=== PATIENT | male | born 1935 | race Hispanic/Latino ===

== ENCOUNTER → 2019-01-25 | Outpatient (CLI) | payer MEDICARE | END | disposition home or self-care (01) | LOC: RAH 09:17 | PROVIDERS: ATTEND Internal Medicine | DX: I25.10 Atherosclerotic heart disease of native coronary artery without angina pectoris (principal) | CPT/HCPCS: 71250 ==

== ENCOUNTER 2020-01-17 14:20 | Inpatient (IN) | payer MEDICARE ==
[~2020-01-17] VITALS: Ht 180.3 cm; Wt 71.6 kg
[2020-01-17] MEDS ORDERED: ONDANSETRON HCL 4 MG/2 ML VIAL ONE (15:01)
[2020-01-17] MEDS ORDERED: MORPHINE SULFATE 4 MG/1ML SYG ONE ×2 (15:02→16:52)
[2020-01-17 15:14] LABS: INR 1.02 (0.85-1.15); PARTIAL THROMBOPLASTIN TIME 21.9 SEC (26.3-35.5)
[2020-01-17 15:15] LABS: BASOPHILS % (AUTO) 0.7 % (0.0-5.0); EOSINOPHILS % (AUTO) 3.8 % (0.0-8.0); HEMATOCRIT 30.1 % (42-54); MEAN CORPUSCULAR HEMOGLOBIN 30.5 pg (27.0-33.0); MEAN CORPUSCULAR HGB CONC 32.9 g/dL (32.0-36.0); MEAN CORPUSCULAR VOLUME 92.6 fL (79-99); MONOCYTES % (AUTO) 9.2 % (3.0-13.0); PLATELET COUNT (AUTO) 143 K/uL (130-400); RED BLOOD CELL COUNT(AUTO) 3.25 MIL/uL (4.50-6.20); RED CELL DISTRIBUTION WIDTH 12.9 % (11.0-15.5); WHITE BLOOD COUNT (AUTO) 7.1 K/uL (4.8-10.8)
[2020-01-17 15:16] LABS: CREATININE 2.7 mg/dL (0.5-1.5)
[2020-01-17] MEDS ORDERED: CEFAZOLIN SODIUM 1 GM VIAL ONE (16:04)
[2020-01-17] MEDS: SODIUM CHLORIDE 0.9% 1000ML 1,000 ML IV SCH (16:44)
[2020-01-17] MEDS: CEFAZOLIN SODIUM 1 GM VIAL IVP SCH (16:45)
[2020-01-17] MEDS ORDERED: LACTULOSE 20 GM/30 ML UDCUP PO PRN (16:45)
[2020-01-17] MEDS ORDERED: ACETAMINOPHEN 325 MG TAB PO PRN ×2 (16:45)
[2020-01-17] MEDS ORDERED: HYDRALAZINE HCL 20 MG/ML VIAL IV PRN (16:45)
[2020-01-17] MEDS ORDERED: ONDANSETRON HCL 4 MG/2 ML VIAL IV PRN (16:45)
[2020-01-17 19:13] LABS: HEMOGLOBIN A1C 6.1 % (4.0-6.0)
[2020-01-17] MEDS: HEPARIN SODIUM 5000UNIT/ML 1ML VIAL SQ SCH (21:00)
[2020-01-17] MEDS: METOPROLOL TARTRATE 25 MG TAB PO SCH (21:00)
[2020-01-17] MEDS ORDERED: HEPARIN SODIUM 5000UNIT/ML 1ML VIAL ONE (22:39)
[2020-01-17] MEDS ORDERED: METOPROLOL TARTRATE 25 MG TAB ONE (22:39)
[2020-01-17] MEDS ORDERED: FAMOTIDINE/PF 20 MG/2 ML VIAL IV ONE (22:39)
[2020-01-17 23:16] VITALS: BP 142/68
[2020-01-18] MEDS ORDERED: PRAV80TA21 PO (00:13)
[2020-01-18] MEDS ORDERED: LISI2.5T2 PO (00:13)
[2020-01-18] MEDS ORDERED: METO-408 PO (00:13)
[2020-01-18] MEDS ORDERED: AEC81 PO (00:13)
[2020-01-18 00:16] VITALS: BP 122/58
[2020-01-18] MEDS ORDERED: OMEP20CA12 PO (00:16)
[2020-01-18] MEDS ORDERED: LORA10TA7 PO (00:16)
[2020-01-18] MEDS ORDERED: SODI650T PO (00:16)
[2020-01-18] MEDS: CEFAZOLIN SODIUM 1 GM VIAL IVP SCH ×3 (01:35→17:11)
[2020-01-18 05:17] VITALS: BP 141/60
[2020-01-18 08:00] VITALS: BP 138/63
[2020-01-18] MEDS: METOPROLOL TARTRATE 25 MG TAB PO SCH ×2 (09:00→21:14)
[2020-01-18] MEDS: HEPARIN SODIUM 5000UNIT/ML 1ML VIAL SQ SCH ×2 (09:00→21:19)
[2020-01-18] MEDS: FAMOTIDINE/PF 20 MG/2 ML VIAL IV SCH (09:53)
[2020-01-18] MEDS: MORPHINE SULFATE 2 MG/ML 1ML SYG IM PRN (11:17)
--- NOTE | 2020-01-18 11:23 | NUR ---
DC PLAN VISITED WITH PATIENT. PATIENT LIVES ALONE. INDEPENDENT ABLE TO PERFORM ADL'S. PATIENT HAS NO SERVICES OR DME'S. FEELS SAFE TO RETURN HOME. SAID HE WILL LIKELY STAY WITH DAUGHTER IN [place] IF HE NEEDS HELP. Addendum: 01/18/20 at 1125 by JOSE ALBERTO CHILEL RN CM Amended: Links added.
--- NOTE | 2020-01-18 11:34 | NUR ---
RD NOTIFICATION Pt admitted with L-Tibial Fracture. 84 y/o male. NPO pending procedure at time of screen. Appropriate BMI range. Altered renal function. Recommend advance diet as tolerated to Renal non dialysis, Heart Healthy diet order Recommend 60mL ProMod QD RD to continue to monitor. Please notify as additional nutrition concerns arise. Thank you. Addendum: 01/18/20 at [address] RD Amended: Links added.
[2020-01-18 12:00] VITALS: BP 138/64
[2020-01-18] MEDS: SODIUM CHLORIDE 0.9% 1000ML 1,000 ML IV SCH ×3 (12:44→21:20)
[2020-01-18 15:48] LABS: CREATININE 1.7 mg/dL (0.5-1.5); POTASSIUM 4.6 mmol/L (3.5-5.1)
[2020-01-18 16:00] VITALS: BP 145/71
[2020-01-18 20:08] VITALS: BP 149/65
[2020-01-19] VITALS (21 sets, daily range): BP systolic 128–176; BP diastolic 51–85
[2020-01-19] MEDS: CEFAZOLIN SODIUM 1 GM VIAL IVP SCH ×3 (00:18→14:23)
[2020-01-19 05:26] LABS: BASOPHILS % (AUTO) 0.7 % (0.0-5.0); EOSINOPHILS % (AUTO) 4.5 % (0.0-8.0); HEMATOCRIT 26.3 % (42-54); LYMPHOCYTES % (AUTO) 17.3 % (21.0-51.0); MEAN CORPUSCULAR HGB CONC 32.7 g/dL (32.0-36.0); MEAN CORPUSCULAR VOLUME 91.6 fL (79-99); MONOCYTES % (AUTO) 15.1 % (3.0-13.0); NEUTROPHILS % (AUTO) 62.1 % (40.0-77.0); PLATELET COUNT (AUTO) 118 K/uL (130-400); RED BLOOD CELL COUNT(AUTO) 2.87 MIL/uL (4.50-6.20); RED CELL DISTRIBUTION WIDTH 12.7 % (11.0-15.5); WHITE BLOOD COUNT (AUTO) 7.4 K/uL (4.8-10.8)
[2020-01-19 05:40] LABS: ALBUMIN 2.9 g/dL (3.5-5.0); BILIRUBIN,TOTAL 0.5 mg/dL (0.2-1.0); CREATININE 1.6 mg/dL (0.5-1.5); POTASSIUM 4.5 mmol/L (3.5-5.1); TOTAL PROTEIN, SERUM 6.2 g/dL (6.0-8.3)
[2020-01-19] MEDS ORDERED: FENTANYL CITRATE PF 50 MCG/1 ML 2ML VIAL ONE (07:00)
[2020-01-19] MEDS ORDERED: NEOSTIGMINE 5MG/5ML SYR IV ONE (07:00)
[2020-01-19] MEDS ORDERED: ONDANSETRON HCL 4 MG/2 ML VIAL ONE (07:00)
[2020-01-19] MEDS ORDERED: LIDOCAINE PF 2% 5ML ABBOJECT ONE ×2 (07:00→07:01)
[2020-01-19] MEDS ORDERED: GLYCOPYRROLATE 1 MG/5 ML SYRINGE ONE (07:00)
[2020-01-19] MEDS ORDERED: MIDAZOLAM HCL 1 MG/ML 2ML VIAL ONE (07:00)
[2020-01-19] MEDS ORDERED: DEXAMETHASONE SOD PHOSPHATE 10MG/ML 1ML VIAL ONE (07:00)
[2020-01-19] MEDS ORDERED: PROPOFOL 10 MG/ML 20ML VIAL IV ONE (07:00)
[2020-01-19] MEDS ORDERED: ROCURONIUM 10MG/1ML SYR 10 MG/ML ML ONE (07:00)
[2020-01-19] MEDS: FAMOTIDINE/PF 20 MG/2 ML VIAL IV SCH (07:35)
[2020-01-19] MEDS: SODIUM CHLORIDE 0.9% 1000ML 1,000 ML IV SCH ×3 (07:35→20:40)
[2020-01-19] MEDS: HEPARIN SODIUM 5000UNIT/ML 1ML VIAL SQ SCH ×2 (07:35→20:41)
[2020-01-19] MEDS: METOPROLOL TARTRATE 25 MG TAB PO SCH ×2 (07:36→20:40)
[2020-01-19] MEDS ORDERED: CEFAZOLIN SODIUM 1 GM VIAL ONE (07:42)
[2020-01-19] MEDS ORDERED: MEPERIDINE-PF 25 MG/ML SYG ONE ×2 (08:05→08:34)
[2020-01-19] MEDS: TAMSULOSIN HCL 0.4 MG CAP.ER.24H PO SCH (14:23)
[2020-01-19] MEDS: MORPHINE SULFATE 2 MG/ML 1ML SYG IM PRN (20:47)
[2020-01-20] MEDS: CEFAZOLIN SODIUM 1 GM VIAL IVP SCH ×4 (00:13→23:27)
[2020-01-20 03:38] VITALS: BP 142/62
[2020-01-20 04:48] LABS: BASOPHILS % (AUTO) 0.2 % (0.0-5.0); EOSINOPHILS % (AUTO) 0.3 % (0.0-8.0); HEMATOCRIT 21.9 % (42-54); LYMPHOCYTES % (AUTO) 10.6 % (21.0-51.0); MEAN CORPUSCULAR HEMOGLOBIN 30.7 pg (27.0-33.0); MEAN CORPUSCULAR HGB CONC 33.3 g/dL (32.0-36.0); MONOCYTES % (AUTO) 15.5 % (3.0-13.0); NEUTROPHILS % (AUTO) 73.2 % (40.0-77.0); PLATELET COUNT (AUTO) 109 K/uL (130-400); RED BLOOD CELL COUNT(AUTO) 2.38 MIL/uL (4.50-6.20); RED CELL DISTRIBUTION WIDTH 12.6 % (11.0-15.5); WHITE BLOOD COUNT (AUTO) 9.5 K/uL (4.8-10.8)
[2020-01-20 05:11] LABS: ALBUMIN 2.6 g/dL (3.5-5.0); BILIRUBIN,TOTAL 0.4 mg/dL (0.2-1.0); CREATININE 1.5 mg/dL (0.5-1.5); POTASSIUM 4.5 mmol/L (3.5-5.1)
[2020-01-20] MEDS: MORPHINE SULFATE 2 MG/ML 1ML SYG IM PRN ×2 (06:13→21:11)
[2020-01-20] MEDS: SODIUM CHLORIDE 0.9% 1000ML 1,000 ML IV SCH ×2 (06:14→23:58)
--- NOTE | 2020-01-20 08:00 | NUR ---
NOTE AAOX3. DENIES PAIN AT THIS TIME. S/P LEFT TIBIAL ORIF. DRESSING TO SITE D/I. HE HAS NOT BEEN SEEN BY P.T. WILL ASK MD FOR ORDERS. LLE DISTAL PULSES PRESENT WARM TOES BILATERALLY GOOD CAPILLARY REFILL.
[2020-01-20 08:02] VITALS: BP 139/68
[2020-01-20] MEDS: FAMOTIDINE/PF 20 MG/2 ML VIAL IV SCH (09:54)
[2020-01-20] MEDS: TAMSULOSIN HCL 0.4 MG CAP.ER.24H PO SCH (09:54)
[2020-01-20] MEDS: METOPROLOL TARTRATE 25 MG TAB PO SCH ×2 (09:54→21:06)
[2020-01-20] MEDS: HEPARIN SODIUM 5000UNIT/ML 1ML VIAL SQ SCH ×2 (10:14→21:09)
[2020-01-20 12:25] VITALS: BP 129/60
[2020-01-20 16:16] VITALS: BP 134/65
--- NOTE | 2020-01-20 17:00 | NUR ---
NOTE DR HESS CAME IN EARLIER. PATIENT WAS SEN BY P.T. AND HE AMBULATED SMALL DISTANCE. DR SILVA ASKED PATIENT IF HE HAD HELP AT HOME OR HE NEEDED TO GO TO REHAB OR [facility] FOR REHAB AND HE SAID HE WILL MAKE DECISION TOMORROW. DR HESS WILL BE HERE TOMORROW TO SEE HIM.
[2020-01-20 19:41] VITALS: BP 131/58
[2020-01-20 23:53] VITALS: BP 128/58
[2020-01-21 03:52] VITALS: BP 145/67
[2020-01-21 04:27] LABS: BASOPHILS % (AUTO) 0.4 % (0.0-5.0); EOSINOPHILS % (AUTO) 2.3 % (0.0-8.0); LYMPHOCYTES % (AUTO) 13.7 % (21.0-51.0); MEAN CORPUSCULAR HEMOGLOBIN 30.9 pg (27.0-33.0); MEAN CORPUSCULAR VOLUME 90.8 fL (79-99); MONOCYTES % (AUTO) 13.2 % (3.0-13.0); PLATELET COUNT (AUTO) 120 K/uL (130-400); RED BLOOD CELL COUNT(AUTO) 2.17 MIL/uL (4.50-6.20); RED CELL DISTRIBUTION WIDTH 12.3 % (11.0-15.5); WHITE BLOOD COUNT (AUTO) 7.9 K/uL (4.8-10.8)
[2020-01-21 04:37] LABS: HEMATOCRIT 19.7 % (42-54)
--- NOTE | 2020-01-21 04:39 | NUR ---
Hgb: 6.7 and Hct: 19.7 Referred to on-call hospitalist ( JUSTIN Owens) with an order to repeat H and H and Transfuse 1 unit PRBC if hgb result is <7.
[2020-01-21 04:46] LABS: ALBUMIN 2.4 g/dL (3.5-5.0); BILIRUBIN,TOTAL 0.4 mg/dL (0.2-1.0); CREATININE 1.4 mg/dL (0.5-1.5); POTASSIUM 4.3 mmol/L (3.5-5.1); TOTAL PROTEIN, SERUM 5.8 g/dL (6.0-8.3)
[2020-01-21 05:19] LABS: HEMATOCRIT 20.4 % (42-54)
[2020-01-21] MEDS: CEFAZOLIN SODIUM 1 GM VIAL IVP SCH ×3 (06:15→22:58)
[2020-01-21 08:00] VITALS: BP 140/64
[2020-01-21] MEDS: HEPARIN SODIUM 5000UNIT/ML 1ML VIAL SQ SCH (09:00)
[2020-01-21] MEDS ORDERED: SODIUM CHLORIDE 0.9% 250 ML IV ONE (09:48)
[2020-01-21] MEDS: SODIUM CHLORIDE 0.9% 1000ML 1,000 ML IV SCH ×2 (10:44→22:58)
[2020-01-21 11:00] VITALS: BP 139/64
[2020-01-21] MEDS: TAMSULOSIN HCL 0.4 MG CAP.ER.24H PO SCH (11:31)
[2020-01-21] MEDS: METOPROLOL TARTRATE 25 MG TAB PO SCH ×2 (11:31→22:17)
[2020-01-21] MEDS: FAMOTIDINE/PF 20 MG/2 ML VIAL IV SCH (11:31)
--- NOTE | 2020-01-21 12:45 | NUR ---
NOTE BLOOD TRANSFUSION STARTED AT THIS TIME. REFER TO TRANSFUSION SHEET FOR DETAILS. HE GOT UP WITH P.T. EARLIER AND WAS NOT ABLE TO PARTICIPATE BECAUSE HE BECAME DIZZY AND PALE AND WAS ASSISTED BACK TO BED AND IMMEDIATELY FELT BETTER ONCE HE WAS LAYING DOWN AGAIN. HEPARIN SQ DC'D AND ORDERS FOR STOOL FOR HEMOCCULT PRESENT.
--- NOTE | 2020-01-21 14:19 | NUR ---
INFORMED JOSEFINA PT NURSE, OF PATIENT'S NEAR SYNCOPAL EPISODE. Addendum: 01/21/20 at 1420 by JANNY PEREZ PT Amended: Links added.
[2020-01-21 16:44] VITALS: BP 139/61
[2020-01-21 19:10] LABS: HEMATOCRIT 22.2 % (42-54)
[2020-01-21 19:34] VITALS: BP 125/53
--- NOTE | 2020-01-21 22:14 | NUR ---
post BT hemoglobin result: 7.4 Informed on-call hospitalist ( JUSTIN Rubalcava) with no new order. To wait for blood chem result in AM.
[2020-01-21 23:18] VITALS: BP 132/65
--- NOTE | 2020-01-21 23:53 | NUR ---
sleeping pill medication Called on-call hospitalist to report that pt. wants medication for him to sleep. Ordered to give Restoril 7.5 mg po x 1 dose only.
[2020-01-21] MEDS ORDERED: TEMAZEPAM 7.5 MG CAPSULE PO ONE (23:56)
[2020-01-22] VITALS (9 sets, daily range): BP systolic 88–149; BP diastolic 28–66
[2020-01-22] MEDS ORDERED: TEMAZEPAM 7.5 MG CAPSULE PO ONE
[2020-01-22 05:49] LABS: BASOPHILS % (AUTO) 0.6 % (0.0-5.0); EOSINOPHILS % (AUTO) 3.9 % (0.0-8.0); HEMATOCRIT 23.6 % (42-54); LYMPHOCYTES % (AUTO) 15.5 % (21.0-51.0); MEAN CORPUSCULAR HGB CONC 33.5 g/dL (32.0-36.0); MEAN CORPUSCULAR VOLUME 86.8 fL (79-99); MONOCYTES % (AUTO) 15.1 % (3.0-13.0); NEUTROPHILS % (AUTO) 64.6 % (40.0-77.0); PLATELET COUNT (AUTO) 135 K/uL (130-400); RED BLOOD CELL COUNT(AUTO) 2.72 MIL/uL (4.50-6.20); RED CELL DISTRIBUTION WIDTH 16.9 % (11.0-15.5); WHITE BLOOD COUNT (AUTO) 6.8 K/uL (4.8-10.8)
[2020-01-22 06:07] LABS: ALBUMIN 2.4 g/dL (3.5-5.0); BILIRUBIN,TOTAL 0.5 mg/dL (0.2-1.0); CREATININE 1.3 mg/dL (0.5-1.5)
[2020-01-22] MEDS: CEFAZOLIN SODIUM 1 GM VIAL IVP SCH ×2 (06:26→17:55)
[2020-01-22] MEDS: SODIUM CHLORIDE 0.9% 1000ML 1,000 ML IV SCH ×2 (06:42→16:49)
[2020-01-22] MEDS: TAMSULOSIN HCL 0.4 MG CAP.ER.24H PO SCH (08:24)
[2020-01-22] MEDS: METOPROLOL TARTRATE 25 MG TAB PO SCH ×2 (08:24→20:06)
[2020-01-22] MEDS: FAMOTIDINE/PF 20 MG/2 ML VIAL IV SCH (08:24)
--- NOTE | 2020-01-22 09:00 | NUR ---
DRESSING TO LT.LOWER CHANGED, SEE PICTURES IN CHART.
[2020-01-22 09:03] LABS: % IRON SATURATION 16.8 % (30-44)
[2020-01-22] MEDS ORDERED: COMPOUND IV MISC 1 EACH IVSOLN MISC PRN (11:30)
[2020-01-22] MEDS ORDERED: SODIUM CHLORIDE 0.9% 250 ML IV ONE (12:53)
--- NOTE | 2020-01-22 13:55 | NUR ---
DR. CONKLIN IN TO SEE PT. ORDERS ENTERED.
--- NOTE | 2020-01-22 14:15 | NUR ---
TO RECEIVE I UNIT OF PRBC AND HAVE BEEN STARTED NOW, WILL MONITOR CLOSELY FOR S/S OF REACTION.
--- NOTE | 2020-01-22 16:15 | NUR ---
BLD. TRANSFUSION COMPLETE, NO ADVERSE REACTION.
[2020-01-22] MEDS ORDERED: METO-391 PO (16:56)
[2020-01-22] MEDS ORDERED: IRON SUCROSE COMPLEX 100 MG in SODIUM CHLORIDE 0.9% 50 ML IV SCH (18:00)
[2020-01-22] MEDS: APIXABAN 2.5 MG TABLET PO SCH (20:06)
[2020-01-22] MEDS: MORPHINE SULFATE 2 MG/ML 1ML SYG IM PRN (20:10)
[2020-01-23] MEDS: MORPHINE SULFATE 2 MG/ML 1ML SYG IM PRN (00:36)
[2020-01-23 04:00] VITALS: BP 142/65
[2020-01-23 05:43] LABS: ALBUMIN 2.4 g/dL (3.5-5.0); BILIRUBIN,TOTAL 0.6 mg/dL (0.2-1.0); CREATININE 1.3 mg/dL (0.5-1.5); POTASSIUM 3.7 mmol/L (3.5-5.1); TOTAL PROTEIN, SERUM 6.1 g/dL (6.0-8.3); URIC ACID 4.2 mg/dL (2.6-7.2)
[2020-01-23 06:07] LABS: HEMATOCRIT 25.9 % (42-54); MEAN CORPUSCULAR HEMOGLOBIN 29.1 pg (27.0-33.0); MEAN CORPUSCULAR HGB CONC 33.6 g/dL (32.0-36.0); MEAN CORPUSCULAR VOLUME 86.6 fL (79-99); PLATELET COUNT (AUTO) 144 K/uL (130-400); RED BLOOD CELL COUNT(AUTO) 2.99 MIL/uL (4.50-6.20); RED CELL DISTRIBUTION WIDTH 15.8 % (11.0-15.5); WHITE BLOOD COUNT (AUTO) 6.5 K/uL (4.8-10.8)
[2020-01-23 06:35] LABS: BASOPHILS % (MANUAL) 2 % (0-2); EOSINOPHILS % (MANUAL) 1 % (1-6); LYMPHOCYTES % (MANUAL) 14 % (22-44); MAN.DIFF COMMENT-IMPRESSION MANUAL DIFFERENTIAL; MONOCYTES % (MANUAL) 7 % (2-9); PLATELET MORPHOLOGY COMMENT ADEQUATE; SEGMENTED NEUTROPHILS % 76 % (40-70)
[2020-01-23 08:41] VITALS: BP 112/61
[2020-01-23] MEDS ORDERED: Vitamin B Complex/Vit C/Folic Acid PO SCH (09:00)
[2020-01-23] MEDS ORDERED: IRON SUCROSE COMPLEX 300 MG in SODIUM CHLORIDE 0.9% 50 ML IV SCH (09:00)
--- NOTE | 2020-01-23 09:30 | NUR ---
DR. ROWELL IN TO SEE PT. OK TO DC ONCE HH HAS BEEN ARRANGED.
[2020-01-23] MEDS: METOPROLOL TARTRATE 25 MG TAB PO SCH (09:38)
[2020-01-23] MEDS: APIXABAN 2.5 MG TABLET PO SCH (09:38)
[2020-01-23] MEDS: FAMOTIDINE/PF 20 MG/2 ML VIAL IV SCH (09:38)
[2020-01-23] MEDS: TAMSULOSIN HCL 0.4 MG CAP.ER.24H PO SCH (09:38)
[2020-01-23] MEDS ORDERED: DOCU240C25 PO (09:46)
[2020-01-23] MEDS ORDERED: TRAM50TA4 PO (09:46)
[2020-01-23] MEDS ORDERED: ACET1TAB12 PO (09:46)
[2020-01-23] MEDS ORDERED: APIX2.5T PO (09:46)
[2020-01-23 11:43] VITALS: BP 105/60
--- NOTE | 2020-01-23 13:06 | NUR ---
DC PLAN SPOKE TO NURSE SAADIA THIS MORNING SAID THAT HOME HEALTH HAD BEEN ORDERED. EXPLAINED NO ORDER IN SYSTEM OR RECEIVED. SPOKE TO DR. ROWELL GOT ORDER FOR HOME HEALTH. PER DR. ROWELL PATIENT IS ACO AND PREFFERED IS [facility]. SPOKE TO PATIENT. SAID OKAY TO [facility] IF DR. ROWELL RECOMMENDED. INFO SENT TO TO [facility]. CALLED BACK SAID PATIENT ACCEPTED. ORANGE PAPER IN CHART LET CHARGE NURSE KNOW. Addendum: 01/23/20 at 1311 by JOSE ALBERTO CHILEL RN CM Amended: Links added.
--- NOTE | 2020-01-23 15:36 | NUR ---
DC PLAN DAUGHTER REQUESTED CALL BACK FROM CM. SPOKE TO PATIENT RECEIVED VERBAL CONSENT TO SPEAK TO DAUGHTER. DAUGHTER WANTED TO LET US KNOW THAT DAD IS GOING TO STAY WITH HER AT [address] [facility] [id number]. GAVE [facility] DAUGHTERS ADDRESS AND PHONE NUMBER. NAFISA ALCANTAR VERBALIZED CHANGE OF ADDRESS. Addendum: 01/23/20 at 1554 by JOSE ALBERTO CHILEL RN CM Amended: Links added.
[2020-01-23 17:17] VITALS: BP 162/66
--- NOTE | 2020-01-23 17:30 | NUR ---
DISCHARGED NOW USING TEACH BACK. RX. GIVEN AND HOME HEALTH WILL TAKE CARE OF WOUND DRESSING AND PT. SPENT MOST O DAY SITTING IN CHAIR AND DID NOT C/O OF PAIN. DRESSING TO LEG CLEAN AND DRY AND ORDERS ARE NOT TO CHANGE DAILY.FOLLOW UP APPT. IN PLACE AND WILL BE STAYING WITH A ND SHE WILL TAXI HIM AROUND DAUGHTER
--- NOTE | 2020-01-23 19:00 | NUR ---
CALLED [facility], ANSWERING SERVICE PICKED UP, WILL PAGE NURSE TELETYPE CLERK TO CALL BACK.
[2020-01-23] MEDS ORDERED: FE F1CAP8 PO (19:06)
[2020-01-24] MEDS ORDERED: IRON SUCROSE COMPLEX 300 MG in SODIUM CHLORIDE 0.9% 250 ML IV SCH ×4 (09:00)
--- NOTE | 2020-01-24 09:20 | NUR ---
MD PLAN [facility] CALLED SAID THAT THEY DID NOT RECEIVE REPORT. TRIED TO GIVE AN OVERVIEW. CALLED CHARGE NURSE LET HER KNOW OF ISSUE AND HOME HEALTH NUMBER. SAID WOULD CALL TO GIVE REPORT. Addendum: 01/24/20 at 0921 by JOSE ALBERTO CHILEL RN CM Amended: Links added.
== END 2020-01-23 18:30 | disposition home health service (06) | DRG 493 ==
LOC: EDH 14:20 → EDHIP 16:44 → 3DH 23:24
PROVIDERS: ADMIT Internal Medicine; ATTEND Internal Medicine
PROC: 0QSH06Z Reposition Left Tibia with Intramedullary Internal Fixation Device, Open Approach (ICD-10-PCS; principal; 2020-01-19 07:09)
PROC: 30233N1 Transfusion of Nonautologous Red Blood Cells into Peripheral Vein, Percutaneous Approach (ICD-10-PCS; 2020-01-21)
DX: S82.252A Displaced comminuted fracture of shaft of left tibia, initial encounter for closed fracture (principal); N17.9 Acute kidney failure, unspecified; N13.8 Other obstructive and reflux uropathy; N18.4 Chronic kidney disease, stage 4 (severe); E78.5 Hyperlipidemia, unspecified; I12.9 Hypertensive chronic kidney disease with stage 1 through stage 4 chronic kidney disease, or unspecified chronic kidney disease; Z87.891 Personal history of nicotine dependence; R33.9 Retention of urine, unspecified; D64.9 Anemia, unspecified; D69.6 Thrombocytopenia, unspecified; K21.9 Gastro-esophageal reflux disease without esophagitis; M19.90 Unspecified osteoarthritis, unspecified site; N40.1 Benign prostatic hyperplasia with lower urinary tract symptoms; Z79.01 Long term (current) use of anticoagulants; Z79.82 Long term (current) use of aspirin; Z98.42 Cataract extraction status, left eye; W01.0XXA Fall on same level from slipping, tripping and stumbling without subsequent striking against object, initial encounter; Y93.89 Activity, other specified; Y92.89 Other specified places as the place of occurrence of the external cause; Y99.8 Other external cause status
CPT/HCPCS: 36415; 36430; 71045; 73562; 73590; 80048; 80053; 82270; 83036; 83540; 83550; 84100; 84145; 84550; 85014; 85018; 85025; 85610; 85730; 86850; 86900; 86901; 86922; 93005; 97039; A4344; G0378; J0690; J1100; J1644; J1756; J2001; J2175; J2250; J2270; J2405; J2704; J2710; J3010; J3490; J7030; J7050; P9016